=== PATIENT | male | born 1990 | race African-American/Black ===

== ENCOUNTER 2017-02-22 03:12 | Emergency (ER) | payer MEDICAID ==
[~2017-02-22] VITALS: Ht 185.4 cm; Wt 84.0 kg
[2017-02-22 08:18] VITALS: BP 120/69
== END 2017-02-22 08:19 | disposition home or self-care (01) ==
LOC: ER 03:14
DX: M25.561 Pain in right knee (principal)
CPT/HCPCS: 73562; 99284